=== PATIENT | female | born 1980 | race Caucasian/White ===

== ENCOUNTER → 2017-11-01 | Outpatient (CLI) | payer OTHER ==
[~2017-11-01] MED LIST: CLR10 PO; FLUT0.15; PRENTAB26 PO
[2017-11-01 11:14] LABS: BASO % 0.4 %; BASO ABS # 0.02 K/uL (0-0.2); EOS % 2.8 %; EOS ABS # 0.14 K/uL (0-0.5); HEMATOCRIT 39.7 % (37-47); HEMOGLOBIN 13.4 g/dL (12.0-16.0); IG# 0.02 K/uL (0.00-0.02); LYMPH % 27.6 %; LYMPH ABS # 1.36 K/uL (1.2-3.4); MEAN CORPUSCULAR HEMOGLOBIN 29.7 pg (25-34); MEAN CORPUSCULAR HGB CONC 33.8 g/dl (32-36); MEAN PLATELET VOLUME 10.1 fL (7.4-10.4); MONO % 9.8 %; MONO ABS # 0.48 K/uL (0.11-0.59); PLATELET COUNT 269 K/uL (130-400); RED CELL DISTRIBUTION WIDTH CV 13.1 % (11.5-14.5); RED CELL DISTRIBUTION WIDTH SD 42.2 fL (36.4-46.3); WHITE BLOOD COUNT 4.92 K/uL (4.8-10.8)
[2017-11-01 11:44] LABS: HEMOGLOBIN A1C 5.7 % (4.5-5.6)
[2017-11-01 11:49] LABS: ALBUMIN 3.9 gm/dl (3.4-5.0); ALKALINE PHOSPHATASE 70 U/L (45-117); ALT/SGPT 24 U/L (12-78); AST/SGOT 15 U/L (15-37); BLOOD UREA NITROGEN 6 mg/dl (7-18); CALCIUM 8.9 mg/dl (8.5-10.1); CARBON DIOXIDE 21 mmol/L (21-32); CREATININE 0.63 mg/dl (0.60-1.20); GLUCOSE 105 mg/dl (70-99); SODIUM 137 mmol/L (136-145); TOTAL PROTEIN 7.5 gm/dl (6.4-8.2)
[2017-11-04 12:19] LABS: ANA SCREEN TC 249X NEGATIVE (NEGATIVE)
== END | disposition home or self-care (01) ==
LOC: C.LAB1850 10:19
PROVIDERS: ATTEND Physician Assistant
DX: M25.50 Pain in unspecified joint (principal); W57.XXXA Bitten or stung by nonvenomous insect and other nonvenomous arthropods, initial encounter

== ENCOUNTER 2018-07-07 07:54 | Inpatient (IN) ==
[2018-07-07] MEDS ORDERED: LACTATED RINGER'S 1,000 ML IV PRN ×3 (08:02→12:30)
[2018-07-07] MEDS ORDERED: OXYTOCIN 30 UNITS/500 ML BAG IV PRN ×3 (08:02→17:14)
[2018-07-07] MEDS ORDERED: INSULIN REGULAR 250 UNITS in SODIUM CHLORIDE 0.9% 247.5 ML IV PRN (08:19)
--- NOTE | 2018-07-07 08:21 | Labor Progress Brief Note ---
Date of Service July 07, 2018 Subjective No OB c/o. Arrives for IOL. Assessment & Plan (1) Insulin controlled gestational diabetes mellitus (GDM) during , antepartum: IOL today. [place] favorable, Pit ordered per wishes of on-call MD today Dr. Toledo. Insulin management protocol started. GBS neg. Physical Exam Physical Exam: FHT Cat 1 Irreg ctx not painful per patient. Cvx 3/75/-2 Vertex palpable No LOF or VB evident. BG 77 at home this AM per patient. Had light breakfast with 16u insulin. Results & Data Vital Signs (Past 12 Hours) Vital Signs Pulse BP 07/07/18 08:07 90 131/90
--- NOTE | 2018-07-07 08:24 | History & Physical Report ---
Date of Service July 07, 2018 Assessment & Plan (1) Encounter for induction of labor: Ms. Gagnon is a pleasant 37yo who presents for IOL at 39.3 weeks. complicated by GDM on insulin and AMA. Since resolved pruritus of . -Pit, fluids, NPO, insulin protocol -Anticipate History of Present Illness Chief Complaint: Induction of labor Primary Care Provider: MATIAS Perez Ms. Gagnon is a 37yo presenting at 39.3 weeks for IOL. ARMANI of July 11, 2018 confirmed by LMP and 1st trimester US. course complicated by GDM on insulin, advanced maternal age and pruritus of . Had a prevous with undiagnosed Down's Syndrome. Has been receiving NSTs from 32 weeks. A+, Antibody NEGATIVE Rubella immune HBsAg NEGATIVE, HIV NEGATIVE Cell free DNA NEGATIVE Declined MSAFP and SMA testing. GBS- Allergies Allergy/AdvReac Type Severity Reaction Status Date / Time Cephalosporins Allergy Mild Gastrointestinal Verified 07/07/18 08:15 Upset milk Allergy Unknown protein Verified 06/02/18 20:07 allergy to milk Home Medications Home Medications Medication Instructions Recorded Confirmed Type PNV cmb#95-ferrous fumarate-FA 1 tab PO DAILY 06/02/18 07/07/18 History [] fluticasone propionate [Flonase 2 spray INTRANASAL DAILY PRN 06/02/18 07/07/18 History Allergy Relief] insulin NPH isoph U-100 human 40 units SUBCUT HS 06/02/18 07/07/18 History [Humulin N NPH Insulin KwikPen] insulin lispro [Humalog KwikPen 16 - 18 units SUBCUT TIDM 06/02/18 07/07/18 History Insulin] loratadine [Claritin] 10 mg PO DAILY PRN 06/02/18 07/07/18 History Patient History Medical History Gestational diabetes mellitus History of tooth extraction No known health problems Seasonal allergic rhinitis [place] teeth extracted No significant family history No significant medical problems No significant past medical history No significant past surgical history Family History Other No known health problems Social History Preferred Language: Bahamian Communication Ability: Effective Maintenance Of Way Foreman Required: No Beliefs That Will Affect Care: None marital status: Current Living Situation: Spouse Feels Safe at Home: Yes Safety Concerns: Feels Safe At This Time Smoking Status: Never smoker Hx Alcohol Use: No Hx Substance Use: No Review of Systems no problem reported (no blurry vision) no dyspnea no chest pain and no palpitations no nausea and no vomiting no pruritus no headache(s) Physical Exam Respiratory: normal respiratory effort, lungs clear to auscultation (lungs clear on front) Cardiovascular: Rate/Rhythm: regular rate and regular rhythm Genitourinary: Cervical exam per Dr. Stone: 3cm dilated, 75% effaced, -2 station Results & Data Laboratory Results Laboratory Results - last 24 hr 07/07/18 08:24 POC Glucose 91 Medications Administered Home Medications PNV cmb#95-ferrous fumarate-FA [] 1 tab PO DAILY 06/02/18 [History Confirmed 06/02/18] fluticasone propionate [Flonase Allergy Relief] 2 spray INTRANASAL DAILY PRN 06/02/18 [History Confirmed 06/02/18] insulin NPH isoph U-100 human [Humulin N NPH Insulin KwikPen] 45 units SUBCUT HS 06/02/18 [History Confirmed 06/02/18] insulin lispro [Humalog KwikPen Insulin] 15 - 18 units SUBCUT TIDM 06/02/18 [History Confirmed 06/02/18] loratadine [Claritin] 10 mg PO DAILY PRN 06/02/18 [History Confirmed 06/02/18] Active Medications Lactated Ringer's (Lr) 1,000 mls @ 999 mls/hr IV .Q1H1M PRN PRN Reason: Pre-Anesthesia Stop: 08/06/18 08:01 Lactated Ringer's (Lr) 1,000 mls @ 999 mls/hr IV .Q1H1M PRN PRN Reason: Tachysystole Stop: 07/09/18 08:06 Lactated Ringer's (Lr) 1,000 mls @ 125 mls/hr IV .Q8H DANDY Stop: 07/09/18 08:14 Last Admin: 07/07/18 08:33 Dose: 125 mls/hr Documented by: Oxytocin (Pitocin) 30 units in 500 mls @ 1 mls/hr IV .Q24H PRN; Protocol PRN Reason: Labor Induction/Augmentation Stop: 07/09/18 08:06 Oxytocin (Pitocin) 30 units in 500 mls @ 333.333 mls/hr IV .Q1H30M PRN; Protocol PRN Reason: Bleeding Control Stop: 08/06/18 08:01 Insulin Human Regular 250 (units/ Sodium Chloride) 250 mls @ 0 mls/hr IV Q24H PRN; Protocol PRN Reason: BSG 80mg/dL or above Stop: 08/06/18 08:18 Supervising Physician Co-Signing Physician Notes Resident Physician Supervision Note: I interviewed and examined the patient. Discussed with Dr. Tavares and agree with findings and plan as documented in the note. Any exceptions or clarifications are listed here: I will not use insulin protocol, will check bsgs q2hr or prn and go from there with goal to keep bsgs between 80-120. Pt aware. Once regular pattern, plan arom. Documented By: Alissa Toledo MD, FACOG
[2018-07-07] MEDS: LACTATED RINGER'S 1,000 ML IV SCH ×2 (08:33→13:15)
[2018-07-07 08:36] LABS: Hematocrit (blood only) 37.4 % (37-47); Hemoglobin 12.7 g/dL (12.0-16.0); Mean Platelet Volume 12.1 fL (7.4-10.4); Platelet Count 208 K/uL (130-400); RDW Coefficient of Variation 14.9 % (11.5-14.5); RDW Standard Deviation 46.6 fL (36.4-46.3); White Blood Count 8.49 K/uL (4.8-10.8)
[2018-07-07] MEDS ORDERED: GLUCAGON FOR INJ 1 MG VIAL IM PRN (09:00)
[2018-07-07] MEDS ORDERED: GLUCOSE 40% GEL 15 GM TUBE PO PRN (09:00)
[2018-07-07] MEDS ORDERED: CARBOHYDRATES FOR HYPOGLYCEMIA PO PRN (09:00)
[2018-07-07] MEDS ORDERED: GLUCOSE 10 TABS/TUBE PO PRN (09:00)
[2018-07-07] MEDS ORDERED: DEXTROSE 50% 50 ML SYRINGE IV PRN (09:00)
--- NOTE | 2018-07-07 10:12 | Obstetrical Progress Note ---
Date of Service July 07, 2018 Assessment & Plan (1) Insulin controlled gestational diabetes mellitus (GDM) during , antepartum: (2) Encounter for induction of labor: will see how arom augments pitocin induction labor pattern. fhts categ 1. recheck bsg by 1hr. or per protocol. Subjective pt feeling woozy, bsg 55. getting juice Physical Exam Constitutional: WD/WN, vitals as above Genitourinary: Manual OB Exam: + cervical dilation 3 cm, + cervical effacement 50%, + station -2 and + amniotic fluid (arom) clear OB Exam Monitor Tracing: + external FHT monitor used (115 mod variability, reactive), + external uterine monitor used (q3) and + category I pit at 3 Results & Data Vital Signs (Past 12 Hours) Vital Signs Temp Pulse Resp BP 07/07/18 08:18 98.4 F 18 07/07/18 08:07 90 131/90
[2018-07-07] MEDS ORDERED: ePHEDrine sulfate 50 MG/ML AMP ONE (11:45)
[2018-07-07] MEDS ORDERED: BUPIVACAINE 0.25% 30 ML VIAL ONE (11:45)
[2018-07-07] MEDS ORDERED: fentaNYL citrate 100 MCG/2 ML VIAL ONE (11:46)
[2018-07-07] MEDS ORDERED: fentaNYL 2MCG/ML ROPIV 1.25MG/ML 100 ML BAG EPI ONE (11:47)
--- NOTE | 2018-07-07 12:15 | Anesthesiology Consultation ---
Date of Service July 07, 2018 Assessment & Plan (1) Encounter for pre-operative examination: Chart Review Chart Review: Patient NOT seen in Pre Admission Testing and Acceptable Risk for Labor Epidural Consults Requested none ASA ASA3 Proposed Anesthesia Anesthesia Type: Labor Epidural and CSE Risk / Benefits Reviewed With: PT / POA / Parent / Guardian, Accepts Plan and Informed Consent Obtained NPO Date Last Intake of Fluids: 07/07/18 Time Last Intake of Fluids: 07:00 Date Last Intake of Solids: 07/07/18 Time Last Intake of Solids: 11:45 History Height/Weight Height: 5 ft 2 in Weight: 81.193 kg Allergies Allergy/AdvReac Type Severity Reaction Status Date / Time Cephalosporins Allergy Mild Gastrointestinal Verified 07/07/18 08:15 Upset milk Allergy Unknown protein Verified 06/02/18 20:07 allergy to milk Medications Home Medications Medication Instructions Recorded Confirmed Last Taken PNV cmb#95-ferrous fumarate-FA 1 tab PO DAILY 06/02/18 07/07/18 07/05/18 [] fluticasone propionate [Flonase 2 spray INTRANASAL DAILY PRN 06/02/18 07/07/18 07/06/18 21:00 Allergy Relief] insulin NPH isoph U-100 human 40 units SUBCUT HS 06/02/18 07/07/18 07/07/18 02:00 [Humulin N NPH Insulin KwikPen] 40 units insulin lispro [Humalog KwikPen 16 - 18 units SUBCUT TIDM 06/02/18 07/07/18 07/07/18 06:45 Insulin] 16 units loratadine [Claritin] 10 mg PO DAILY PRN 06/02/18 07/07/18 07/06/18 21:00 Active Medications Generic Name Dose Route Start Last Admin Trade Name Freq PRN Reason Stop Dose Admin Lactated Ringer's 1,000 mls @ 125 mls/hr 07/07/18 08:15 07/07/18 11:35 Lr IV 07/09/18 08:14 999 mls/hr .Q8H DANDY Infusion Oxytocin 30 units in 500 mls @ 3 mls/hr 07/07/18 08:07 07/07/18 10:57 Pitocin IV 07/09/18 08:06 0.42 units/hr .Q24H PRN 7 mls/hr Labor Induction/Augmentation Titration Protocol 0.18 UNITS/HR Past Medical History Medical History Gestational diabetes mellitus History of tooth extraction No known health problems Seasonal allergic rhinitis [place] teeth extracted No significant family history No significant medical problems No significant past medical history No significant past surgical history Past Family History Family History Other No known health problems Past Anesthesia History No Hx of Anesthesia Complications and No Family Hx of Anesthesia Complications History of PONV No Motion Sickness Screening History of Motion Sickness: No Social History Smoking Status: Never smoker Hx Alcohol Use: No Hx Substance Use: No Exercise / Class Metabolic Activity II 4-5 Yardwork/Stairs/Walk up [place] Review of Systems no chest pain or sob Physical Exam Vital Signs Last Vital Signs Temp 36.8 C 07/07/18 10:59 Pulse 82 07/07/18 12:14 Resp 18 07/07/18 10:59 BP 143/78 H 07/07/18 12:09 Pulse Ox 98 07/07/18 12:14 ENMT Mouth: no TMJ abnormality Thyromental Distance: > or= 3.5 Finger Breadths Mallampati Class: II Neck normal visual inspection Respiratory normal respiratory effort Auscultation: lungs clear to auscultation bilaterally Cardiovascular Rate/Rhythm: regular rate and regular rhythm Musculoskeletal Spine: normal cervical ROM Neurologic moves all extremities Psychiatric Orientation: alert and oriented x 3 Testing Laboratory Results 07/07/18 08:23 07/07/18 07/07/18 07/07/18 11:55 10:27 10:02 POC Glucose 54 L* 82 55 L* 07/07/18 08:24 POC Glucose 91
[2018-07-07] MEDS ORDERED: NALOXONE HCL 0.4 MG/1 ML VIAL/CARP IV PRN (12:30)
[2018-07-07] MEDS ORDERED: ePHEDrine sulfate 50 MG/ML AMP IV PRN (12:30)
[2018-07-07] MEDS ORDERED: DiphenhydrAMINE HCL 50 MG/ML VIAL IV PRN (12:30)
[2018-07-07] MEDS ORDERED: fentaNYL 2MCG/ML ROPIV 1.25MG/ML 100 ML BAG EPI PRN (12:30)
[2018-07-07] MEDS ORDERED: ONDANSETRON INJ 2 MG/ML 2 ML VIAL IV PRN (12:30)
[2018-07-07] MEDS ORDERED: NALBUPHINE HCL INJ 10 MG/ML AMP IV PRN (12:30)
[2018-07-07] MEDS ORDERED: NALOXONE HCL 1 MG in SODIUM CHLORIDE 0.9% 1000ML 1,000 ML IV PRN (12:30)
--- NOTE | 2018-07-07 13:00 | Obstetrical Progress Note ---
Date of Service July 07, 2018 Assessment & Plan (1) Encounter for induction of labor: (2) Insulin controlled gestational diabetes mellitus (GDM) during , antepartum: good cx change, categ 1, pitocin induction Subjective comfortable Physical Exam Genitourinary: Manual OB Exam: + cervical dilation 5 cm, + cervical effacement 90% and + station -1 OB Exam Monitor Tracing: + external FHT monitor used (125 mod variability reactive, categ 1), + external uterine monitor used (q2-3 pit at 7) and + category I Results & Data Vital Signs (Past 12 Hours) Vital Signs Temp Pulse Resp BP Pulse Ox Pulse Ox 07/07/18 12:54 95 H 97 07/07/18 12:49 90 97 07/07/18 12:44 81 123/67 98 07/07/18 12:42 83 121/71 07/07/18 12:41 98 07/07/18 12:40 84 124/75 07/07/18 12:39 95 H 98 07/07/18 12:38 88 122/74 07/07/18 12:36 82 125/74 07/07/18 12:34 101 H 129/72 97 07/07/18 12:32 83 128/67 07/07/18 12:31 87 132/75 07/07/18 12:30 98.6 F 07/07/18 12:29 79 98 07/07/18 12:28 87 135/74 07/07/18 12:26 81 127/73 07/07/18 12:24 88 144/77 H 99 07/07/18 12:23 88 151/81 H 07/07/18 12:21 83 157/65 H 07/07/18 12:19 87 144/84 H 98 07/07/18 12:16 88 144/87 H 07/07/18 12:14 82 98 07/07/18 12:09 87 143/78 H 97 07/07/18 12:00 98 07/07/18 11:08 81 129/80 07/07/18 10:59 98.2 F 18 07/07/18 10:00 18 07/07/18 08:18 98.4 F 18 07/07/18 08:07 90 131/90
--- NOTE | 2018-07-07 15:52 | Obstetrical Progress Note ---
Date of Service July 07, 2018 Assessment & Plan (1) Encounter for induction of labor: (2) Insulin controlled gestational diabetes mellitus (GDM) during , antepartum: begin 2nd stage. fhts categ 1. Subjective feelin some pressure Physical Exam Constitutional: WD/WN, vitals as above Genitourinary: Manual OB Exam: + cervical dilation 10 cm, + cervical effacement 100% and + station + 2 OB Exam Monitor Tracing: + external FHT monitor used (130 mod variability), + external uterine monitor used (q3) and + category I bsg 78 Results & Data Vital Signs (Past 12 Hours) Vital Signs Temp Pulse Resp BP Pulse Ox Pulse Ox 07/07/18 15:49 108 H 98 07/07/18 15:44 105 H 98 07/07/18 15:43 93 H 134/81 07/07/18 15:39 105 H 98 07/07/18 15:34 94 H 97 07/07/18 15:29 95 H 97 07/07/18 15:28 93 H 127/80 07/07/18 15:24 95 H 96 07/07/18 15:19 95 H 96 07/07/18 15:14 90 97 07/07/18 15:13 86 127/71 07/07/18 15:09 95 H 97 07/07/18 15:04 99 H 97 07/07/18 15:00 98.4 F 20 07/07/18 14:59 95 H 98 07/07/18 14:58 99 H 129/84 07/07/18 14:54 88 98 07/07/18 14:49 86 98 07/07/18 14:44 85 99 07/07/18 14:42 89 104/55 L 07/07/18 14:39 83 98 07/07/18 14:34 88 97 07/07/18 14:29 80 117/56 L 98 07/07/18 14:24 93 H 99 07/07/18 14:19 84 98 07/07/18 14:14 90 98 07/07/18 14:12 75 99/56 L 07/07/18 14:10 98.8 F 83 18 106/68 07/07/18 14:09 91 H 98 07/07/18 14:04 87 98 07/07/18 13:59 89 98 07/07/18 13:54 92 H 96 07/07/18 13:49 94 H 98 07/07/18 13:44 97 H 98 07/07/18 13:43 100 H 114/76 07/07/18 13:39 104 H 98 07/07/18 13:34 98 H 98 07/07/18 13:29 94 H 98 07/07/18 13:27 97 H 112/73 07/07/18 13:25 93 H 118/76 07/07/18 13:24 101 H 97 07/07/18 13:23 106 H 117/69 07/07/18 13:21 104 H 118/75 07/07/18 13:19 95 H 109/65 97 07/07/18 13:17 94 H 99/68 L 07/07/18 13:15 85 95/65 L 07/07/18 13:14 89 96 07/07/18 13:11 88 86/57 L 07/07/18 13:09 90 97 07/07/18 13:08 87 88/55 L 07/07/18 13:04 78 97 07/07/18 13:02 86 86/50 L 07/07/18 13:01 91 H 91 07/07/18 12:59 88 98 07/07/18 12:54 95 H 97 07/07/18 12:49 90 97 07/07/18 12:44 81 123/67 98 07/07/18 12:42 83 121/71 07/07/18 12:41 98 07/07/18 12:40 84 124/75 07/07/18 12:39 95 H 98 07/07/18 12:38 88 122/74 07/07/18 12:36 82 125/74 07/07/18 12:34 101 H 129/72 97 07/07/18 12:32 83 128/67 07/07/18 12:31 87 132/75 07/07/18 12:30 98.6 F 18 07/07/18 12:29 79 98 07/07/18 12:28 87 135/74 07/07/18 12:26 81 127/73 07/07/18 12:24 88 144/77 H 99 07/07/18 12:23 88 151/81 H 07/07/18 12:21 83 157/65 H 07/07/18 12:19 87 144/84 H 98 07/07/18 12:16 88 144/87 H 07/07/18 12:14 82 98 07/07/18 12:09 87 143/78 H 97 07/07/18 12:00 98 07/07/18 11:08 81 129/80 07/07/18 10:59 98.2 F 18 07/07/18 10:00 18 07/07/18 08:18 98.4 F 18 07/07/18 08:07 90 131/90
[2018-07-07] MEDS ORDERED: OXYCODONE/ACETAMINOPHEN 5mg/325mg TAB PO PRN (17:14)
[2018-07-07] MEDS ORDERED: SUPERCREAM 0.870% 15 GM JAR EXT PRN (17:14)
[2018-07-07] MEDS ORDERED: DIPHTHERIA/TETANUS/PERTUSSIS 0.5 ML SYR/VIAL IM ONE (17:14)
[2018-07-07] MEDS ORDERED: BENZOCAINE 20% AER SPR 82.5 GM CAN EXT PRN (17:14)
[2018-07-07] MEDS ORDERED: HYDROCORTISONE ACETATE 25 MG SUPP PR PRN (17:14)
[2018-07-07] MEDS ORDERED: ACETAMINOPHEN 325 MG TAB PO PRN (17:14)
--- NOTE | 2018-07-07 17:24 | Delivery Summary ---
DATE OF OPERATION: 07/07/2018 DELIVERY: The patient dilated to complete and pushed to deliver a viable male , Apgars 8 and 9 via over intact perineum. Mouth and nose bulb suctioned at the perineum. The shoulders and body delivered with ease. The infant was vigorous and crying at . Cord clamped at 30 seconds of life and to maternal abdomen where the cord was then doubly clamped and cut. Placenta delivered spontaneously and intact, 3-vessel cord. Hemostasis achieved with dilute Pitocin and uterine massage. Laceration was repaired which included a vaginal laceration and bilateral labial lacerations. This was done with 3-0 and 4-0 Vicryl after additional 1% local lidocaine anesthesia. Estimated blood loss 300 cc. Mother and baby stable in recovery. I attest to the content of the Intraoperative Record and any orders documented therein. Any exceptions are noted below. MTDD
[2018-07-07] MEDS ORDERED: OXYTOCIN 20 UNITS in LACTATED RINGER'S 1,000 ML IV SCH (17:30)
--- NOTE | 2018-07-07 17:42 | Anesthesia Procedure Note ---
Date of Service July 07, 2018 Anesthesia Post Epidural Note Vital Signs Vital Signs: Temp Pulse Resp BP Pulse Ox 37.0 C 107 H 18 125/73 97 07/07/18 17:12 07/07/18 17:27 07/07/18 17:27 07/07/18 17:27 07/07/18 17:19 Pain Intensity Bilateral Lower Abdomen: Pain Intensity: 0 Notes Mental Status: alert / awake / arousable and participated in evaluation Nausea / Vomiting: adequately controlled Pain: adequately controlled Airway Patency, RR, SpO2: stable & adequate BP & HR: stable & adequate Hydration State: stable & adequate Neuraxial Anesthesia: was administered and sensory block is resolving Anesthetic Complications: no major complications apparent and Pt Satisfied with anesthetic care Epidural: Removed without complications and With tip intact
[2018-07-07] MEDS: DOCUSATE SODIUM 100 MG CAP PO SCH (19:55)
[2018-07-07] MEDS: IBUPROFEN 600 MG TAB PO PRN (19:56)
--- OUTSIDE RECORDS SUMMARY | 2018-07-07 22:52 | External Medical Summary | Continuity of Care Document ---
:1980 Author Name Concha Santos, Provider Address Unavailable Unavailable , Care Team Providers Name Role Phone Alissa Toledo M.D. Unavailable [email or web address] Marty Post M.D. Unavailable [email or web address] Mary Kate [email or web address] [email or web address]. [facility] Kalin Edward Unavailable Unavailable Unavailable Unavailable Unavailable Problems Pruritus of in third trimester (646.83) (O99.713) LGA (large for gestational age) fetus Insulin controlled gestational diabetes mellitus during (648.80) (O24.414) Supervision of elderly multigravida, ant epartum, third trimester (V23.82) (O09.523) Moderate nausea (787.02) (R11.0) History of allergy (V15.09) (Z88.9) Arthralgia of multiple sites (719.49) (M25.50) Allergies and Adverse Reactions Ceftin TABS (Allergy) Reaction: Rash Cephalosporins (Allergy) Reaction: Rash Milk-related Compounds (Allergy) Medications Metoclopramide HCl - 10 MG Oral Tablet; take 1 tablet 30 minutes before each meal Danielle Vail Start: 05-Jun-2018 Quantity: 30 Refills: 3 Flonase 50 MCG/ACT SUSP Refills: 0 OneTouch Verio In Vitro Strip; Check 4 to 6 times a day Sandra amos M.D. Bonilla SInes Start: 16-Jan-2018 Quantity: 3 50 Strip Box Refills: 5 HumuLIN N KwikPen 100 UNIT/ML Subcutaneo us Suspension Pen-injector; Inject 65 units at bed time; titrate as needed to target up to 90 units a day Danielle Post Bonilla SInes Start: 12-Mar-2018 Quantity: 2 5 x 3 ML Pen Refills: 3 TABS Refills: 0 Keto-Diastix In Vitro Strip; USE DIRECTED. Danielle Post Start: 16-Jan-2018 Quantity: 1 100 Strip Box Refills: 3 OneTouch Delica Lancets Fine; Check 4x a day. Danielle Post Start: 16-Jan-2018 Quantity: 1 100 Unit Box Refills: 5 BD Pen Needle Janice U/F 32G X 4 MM; Use with Humulin N pen at bed time Danielle Post Start: 04-Feb-2018 Quantity: 40 Refills: 5 Claritin 10 MG Oral Tablet Refills: 0 Promethazine HCl TABS Refills: 0 Zantac TABS Refills: 0 HumaLOG KwikPen 100 UNIT/ML Subcutaneous Solution Pen-injector; Inject up to a TDD of 60-70 units in a day Danielle Post Start: 25-Feb-2018 Quantity: 2 5 x 3 ML Pen Refills: 3 Procedures History of Oral Surgery Tooth Extraction Status: Completed Immunizations Tdap (Adacel) On: 12-Apr-2015 16:39 Lot #: [id number], SANOFI PASTEUR Fluzone Quadrivalent 0.5 ML Intramuscular Suspension On: Mar Fluzone Quadrivalent 0.5 ML Intramuscular Suspension On: Nov-2017 12:48 Lot #: [id number], SANOFI PASTEUR Tdap (Adacel) On: 23-Apr-2018 10:46 Lot #: [id number], SANOFI PASTEUR Family History Mother Family history of Breast Cancer (V16.3) Status: Active Family history of malignant neoplasm of breast (V16.3) (Z80. 3) Status: Active Grandmother Family history of Breast Cancer (V16.3) Status: Active Unknown Family Member Family history of Reported Family History Of Status: Active Comments: Family History Heart Disease Family history of Pure Hypercholesterolemia Status: Active Comments: Family History Family history of Hypothyroidism Status: Active Comment s: Family History natural daughter Family history of Down syndrome (V19.5) (Z82.79) Status: Act braulio Plan of Treatment Planned Observations Planned Goals not documented Results Non-stress test Laboratory: In House (Pending) 10-Jun-2018 10:12 Non-Stress Test Reactive Non-stress test Laboratory: In House (Pending) 17-Jun-2018 10:28 Non-Stress Test Reactive Liver Panel Laboratory: [facility] (Albumin,Tot Prot,Alk Laboratory [address] [address] Dir,ALT/SGPT,AST/SGOT tel: ,Bili-Tot) 17-Jun-2018 10:55 Bilirubin, Total 0.6 mg/dl Range: 0.2-1 mg/dl Bilirubin, Direct 0.1 mg/dl Range: 0-0. 2 mg/dl AST/SGOT 38 U/L (above high Range: 15-3 7 U/L threshold) ALT/SGPT 93 U/L (above high Range: 12-7 8 U/L threshold) TOTAL PROTEIN 6.9 {gm/dl} Range: 6.4-8. 2 gm/dl ALBUMIN 2.6 {gm/dl} (below Range: 3.4-5 .0 gm/dl low threshold) ALKALINE PHOSPHATASE 283 Range: 45-117 U/L U/L (above high threshold) Group B Strep/SEPULVEDA 17-Jun-2018 15:21 GRP B BETA STREP CULTURE - SEPULVEDA ORDERED PROCEDURE : GRP B Beta Strep Culture -SEPULVEDA; Speciment : Vaginal/Rectal Source of Specimen: Vaginal/Rectal Group B Strep Culture : No Group B Strep isolated Non-stress test Laboratory: In House (Pending) 20-Jun-2018 9:34 Non-Stress Test Reactive Liver Panel Laboratory: [facility] (Albumin,Tot Prot,Alk Laboratory [address] [facility] [address] Dir,ALT/SGPT,AST/SGOT tel: ,Bili-Tot) 20-Jun-2018 8:35 Bilirubin, Total 0.5 mg/dl Range: 0.2-1 mg/dl Bilirubin, Direct 0.1 mg/dl Range: 0-0. 2 mg/dl AST/SGOT 25 U/L Range: 15-37 U/L ALT/SGPT 61 U/L Range: 12-78 U/L TOTAL PROTEIN 6.5 {gm/dl} Range: 6.4-8. 2 gm/dl ALBUMIN 2.5 {gm/dl} (below Range: 3.4-5 .0 gm/dl low threshold) ALKALINE PHOSPHATASE 269 Range: 45-117 U/L U/L (above high threshold) Bile Acids Laboratory: [employer] Comments: EDUIN Olvera Hyper9, Quantified Skin [id number] ACCESSI ON NUMBER: [id number] 17-Jun-2018 10:55 TOTAL BILE ACIDS 1.9 umol/L Range: < OR = 6.8 umol/L Comments: This test was developed and its analytical performancecharacteristics have been determined by [facility]. It has not beencleared or approved by FDA. This assa y has been validated pursuant to the CLIA regulations and is used for clinicalpurposes.THIS TEST WAS PERFORMED AT:[employer] [id number] [place], [place] [address]WHWHUNTER SANCHES MD, PHD CHOLIC ACID 0.9 umol/L Range: < OR = 1. 8 umol/L DEOXYCHOLIC ACID <0.5 Range: < OR = 2.4 umol/L umol/L CHENODEOXYCHOLIC ACID 1.1 Range: < OR = 3.1 umol/L umol/L Non-stress test Laboratory: In House (Pending) 24-Jun-2018 10:29 Non-Stress Test Reactive Non-stress test Laboratory: In House (Pending) 27-Jun-2018 12:22 Non-Stress Test Reactive Non-stress test Laboratory: In House (Pending) 01-Jul-2018 10:13 Non-Stress Test Reactive Liver Panel Laboratory: [facility] (Albumin,Tot Prot,Alk Laboratory [address] [facility] [address] Dir,ALT/SGPT,AST/SGOT tel: ,Bili-Tot) 01-Jul-2018 10:09 Bilirubin, Total 0.5 mg/dl Range: 0.2-1 mg/dl Bilirubin, Direct < 0.1 Range: 0-0.2 mg /dl mg/dl AST/SGOT 19 U/L Range: 15-37 U/L ALT/SGPT 21 U/L Range: 12-78 U/L TOTAL PROTEIN 6.6 {gm/dl} Range: 6.4-8. 2 gm/dl ALBUMIN 2.6 {gm/dl} (below Range: 3.4-5 .0 gm/dl low threshold) ALKALINE PHOSPHATASE 258 Range: 45-117 U/L U/L (above high threshold) Non-stress test Laboratory: In House (Pending) 04-Jul-2018 11:30 Non-Stress Test Reactive Vital Signs 04-Jul-2018 11:24 Systolic 112 mm[Hg] Diastolic 70 mm[Hg] Height 62 in BMI Calculated 32.96 kg/m2 Weight 180.2 lb BSA Calculated 1.83 m2 01-Jul-2018 9:04 Systolic 120 mm[Hg] Diastolic 76 mm[Hg] Height 62 in BMI Calculated 32.89 kg/m2 Weight 179.8 lb BSA Calculated 1.83 m2 27-Jun-2018 11:58 Systolic 112 mm[Hg] Diastolic 72 mm[Hg] Height 62 in BMI Calculated 32.85 kg/m2 Weight 179.6 lb BSA Calculated 1.83 m2 24-Jun-2018 9:29 Systolic 110 mm[Hg] Diastolic 68 mm[Hg] Height 62 in BMI Calculated 32.89 kg/m2 Weight 179.8 lb BSA Calculated 1.83 m2 20-Jun-2018 9:19 Systolic 100 mm[Hg] Diastolic 60 mm[Hg] Height 62 in BMI Calculated 32.42 kg/m2 Weight 177.25 lb BSA Calculated 1.82 m2 17-Jun-2018 9:35 Systolic 116 mm[Hg] Diastolic 78 mm[Hg] Height 62 in BMI Calculated 31.94 kg/m2 Weight 174.6 lb BSA Calculated 1.8 m2 10-Jun-2018 9:44 Systolic 112 mm[Hg] Diastolic 76 mm[Hg] Height 62 in BMI Calculated 32.7 kg/m2 Weight 178.8 lb BSA Calculated 1.82 m2 Encounters Appointment; Alissa Toledo M.D. 04-Jul-2018 11:40 Encounter Diagnosis: Problem not documented Appointment; OB SC1, Nonstress Test 04-Jul-2018 10:50 Encounter Diagnosis: Problem not documented Appointment; Carri Stone M.D. 01-Jul-2018 9:30 Encounter Diagnosis: Problem not documented Appointment; OB SC1, Nonstress Test 01-Jul-2018 9:00 Encounter Diagnosis: Problem not documented Appointment; OB SC1, Nonstress Test 27-Jun-2018 11:30 Encounter Diagnosis: Problem not documented Appointment; Carmen Vail M.D. 24-Jun-2018 9:30 Encounter Diagnosis: Problem not documented Appointment; OB SC1, Nonstress Test 24-Jun-2018 9:00 Encounter Diagnosis: Problem not documented Appointment; OB SC1, Nonstress Test 20-Jun-2018 8:45 Encounter Diagnosis: Problem not documented Appointment; Yo Mora M.D. 17-Jun-2018 10:30 Encounter Diagnosis: Problem not documented Appointment; OB SC1, Nonstress Test 17-Jun-2018 10:00 Encounter Diagnosis: Problem not documented Appointment; OBGYN SC1, Ultrasound 17-Jun-2018 9:30 Encounter Diagnosis: Problem not documented Appointment; OB SC1, Nonstress Test 10-Jun-2018 9:30 Encounter Diagnosis: Problem not documented Appointment; Carmen Vail M.D. 05-Jun-2018 10:20 Encounter Diagnosis: Problem not documented Appointment; OB SC1, Nonstress Test 05-Jun-2018 9:30 Encounter Diagnosis: Problem not documented Appointment; Alissa Toledo M.D. 21-May-2018 10:30 Encounter Diagnosis: Problem not documented Appointment; OB SC1, Nonstress Test 21-May-2018 10:00 Encounter Diagnosis: Problem not documented Appointment; OBGYN SC2, Ultrasound 21-May-2018 9:30 Encounter Diagnosis: Problem not documented Appointment; Carri Stone M.D. 06-May-2018 13:30 Encounter Diagnosis: Problem not documented Appointment; Adonay Casillas M.D. 23-Apr-2018 10:20 Encounter Diagnosis: Problem not documented Appointment; OBGYMay PRIETO2, Ultrasound 23-Apr-2018 9:30 Encounter Diagnosis: Problem not documented Appointment; Alissa Toledo M.D. 26-Mar-2018 10:20 Encounter Diagnosis: Problem not documented Appointment; OBGYN SC2, Ultrasound 26-Mar-2018 9:30 Encounter Diagnosis: Problem not documented Appointment; Carmen Vail M.D. 24-Feb-2018 11:20 Encounter Diagnosis: Problem not documented Appointment; OBGYN IDA2, Ultrasound 24-Feb-2018 10:15 Encounter Diagnosis: Problem not documented Appointment; Keli Serna M.D. 27-Jan-2018 8:30 Encounter Diagnosis: Problem not documented Appointment; Trinity Dow R.D. 16-Jan-2018 9:00 Encounter Diagnosis: Problem not documented Appointment; Alissa Toledo M.D. 30-Dec-2017 11:50 Encounter Diagnosis: Problem not documented Appointment; OB SC1, Procedure Rm 25-Nov-2017 12:00 Encounter Diagnosis: Problem not documented Appointment; Yo Mora M.D. 25-Nov-2017 12:00 Encounter Diagnosis: Problem not documented Appointment; OB SC1, Nursing Station 15-Nov-2017 8:45 Encounter Diagnosis: Problem not documented Appointment; Loni Hooks PA-C 01-Nov-2017 9:30 Encounter Diagnosis: Problem not documented Appointment; Lucretia Edward CRNP 18-Apr-2017 15:00 Encounter Diagnosis: Problem not documented Appointment; Nursing [facility], [facility] 18-Apr-2017 14:45 Encounter Diagnosis: Problem not documented
[2018-07-08] MEDS: IBUPROFEN 600 MG TAB PO PRN ×4 (03:02→20:18)
--- NOTE | 2018-07-08 07:02 | Obstetrical Progress Note ---
Date of Service <Lizzy Tavares MD - Last Filed: 07/08/18 07:19> July 08, 2018 Assessment & Plan <Lizzy Tavares MD - Last Filed: 07/08/18 07:19> (1) care following vaginal delivery: 37yo with vaginal delivery at 39.3 weeks. GDM on insulin during the . PPD #1 -Routine care -Glucose checks discontinued; in office f/u upon discharge -Ambulation encouraged -Pain control Subjective <Lizzy Tavares MD - Last Filed: 07/08/18 07:19> Ambulation: limited ambulation (to the bathroom.) Voiding: no voiding problems (mild dysuria) Passing Gas:: Yes Diet Tolerance:: regular diet Lochia:: Moderate Feeding Type:: breast feeding Current Pain Level(1-10): 2 Eyes: no problem reported (no blurry vision) Respiratory: no dyspnea Cardiovascular: no chest pain, no palpitations, no lightheadedness and no calf pain Gastrointestinal: no nausea and no vomiting Genitourinary (female): + dysuria (mild) Neurologic: no headache(s) Physical Exam <Lizzy Tavares MD - Last Filed: 07/08/18 07:19> Vital Signs (Past 24 Hours) Last Vital Signs Temp 36.6 C 07/08/18 03:15 Pulse 84 07/08/18 03:15 Resp 18 07/08/18 03:15 BP 128/82 07/08/18 03:15 Pulse Ox 97 07/07/18 20:00 Respiratory normal respiratory effort, lungs clear to auscultation Cardiovascular Rate/Rhythm: regular rate and regular rhythm Extremities: no calf tenderness and no pedal edema Genitourinary OB Exam Abdomen: + fundal height Fundus: + firm and + relation to umbilicus (at umbilicus) Results & Data <Lizzy Tavares MD - Last Filed: 07/08/18 07:19> Laboratory Results Laboratory Results - last 24 hr 07/07/18 07/07/18 07/07/18 08:23 08:24 10:02 WBC 8.49 RBC 4.40 Hgb 12.7 Hct 37.4 MCV 85.0 MCH 28.9 MCHC 34.0 RDW Std Deviation 46.6 H RDW Coeff of Analia 14.9 H Plt Count 208 MPV 12.1 H POC Glucose 91 55 L* 07/07/18 07/07/18 07/07/18 10:27 11:55 12:17 WBC RBC Hgb Hct MCV MCH MCHC RDW Std Deviation RDW Coeff of Analia Plt Count MPV POC Glucose 82 54 L* 81 07/07/18 07/07/18 07/07/18 13:18 14:28 15:47 WBC RBC Hgb Hct MCV MCH MCHC RDW Std Deviation RDW Coeff of Analia Plt Count MPV POC Glucose 93 78 78 Medications Administered Home Medications PNV [id number] fumarate-FA [] 1 tab PO DAILY 06/02/18 [History Confirmed 07/07/18] fluticasone propionate [Flonase Allergy Relief] 2 spray INTRANASAL DAILY PRN 06/02/18 [History Confirmed 07/07/18] insulin NPH isoph U-100 human [Humulin N NPH Insulin KwikPen] 40 units SUBCUT HS 06/02/18 [History Confirmed 07/07/18] insulin lispro [Humalog KwikPen Insulin] 16 - 18 units SUBCUT TIDM 06/02/18 [History Confirmed 07/07/18] loratadine [Claritin] 10 mg PO DAILY PRN 06/02/18 [History Confirmed 07/07/18] Active Medications Acetaminophen (Tylenol) 650 mg PO Q6H PRN PRN Reason: Pain/RAND/Fever Stop: 08/06/18 17:13 Benzocaine (Dermoplast Pain Relieving [place]) 1 appln EXT PRN PRN PRN Reason: Perineal Discomfort Stop: 08/06/18 17:13 Cocaine HCl (Supercream 0.870%) 1 gm EXT BID PRN PRN Reason: Hemorrhoidal Inflammation Stop: 07/21/18 17:13 Diphenhydramine HCl (Benadryl) 25 mg IV Q6H PRN PRN Reason: Itching Stop: 07/08/18 12:29 Docusate Sodium (Colace) 100 mg PO BID DANDY Stop: 08/06/18 20:59 Last Admin: 07/07/18 19:55 Dose: 100 mg Documented by: Ephedrine Sulfate (Ephedrine Sulfate) 10 mg IV Q5M PRN PRN Reason: Hypotension Stop: 07/08/18 12:29 Hydrocortisone (Anusol Hc) 25 mg OH BID PRN PRN Reason: Hemorrhoidal Inflammation Stop: 08/06/18 17:13 Insulin Human Regular 250 (units/ Sodium Chloride) 250 mls @ 0 mls/hr IV Q24H PRN; Protocol PRN Reason: BSG 80mg/dL or above Stop: 08/06/18 08:18 Naloxone HCl 1 mg/ Sodium (Chloride) 1,002.5 mls @ 50 mls/hr IV .Q20H3M PRN PRN Reason: itching or nausea Stop: 07/08/18 12:29 Oxytocin 20 units/ Lactated (Ringer's) 1,002 mls @ 125 mls/hr IV .Q8H1M DANDY Stop: 08/06/18 17:29 Last Infusion: 07/08/18 03:05 Dose: Infused Documented by: Ibuprofen (Motrin) 600 mg PO Q4H PRN PRN Reason: Pain/RAND/Cramping/Fever Stop: 08/06/18 17:13 Last Admin: 07/08/18 03:02 Dose: 600 mg Documented by: Nalbuphine HCl (Nubain) 5 mg IV Q10M PRN PRN Reason: itching or nausea Stop: 07/08/18 12:29 Naloxone HCl (Narcan) 0.1 mg IV UD PRN PRN Reason: respiratory depression Stop: 07/08/18 12:29 Ondansetron HCl (Zofran) 4 mg IV Q6H PRN PRN Reason: Nausea And Vomiting Stop: 07/08/18 12:29 Oxycodone/Acetaminophen (Percocet 5mg/325mg) 1 tab PO Q4H PRN PRN Reason: Pain not relieved by... Stop: 07/21/18 17:13 Prenat Multivit/Iatan/Iron/Folic Ac ( Vitamin) 1 tab PO QAM DANDY Stop: 08/07/18 08:59 Ropivacaine (Epidural (L&D)) 100 ml EPI PRN PRN; Protocol PRN Reason: Pain R/T Labor Stop: 07/08/18 12:29 <Alissa Toledo MD, FACOG - Last Filed: 07/08/18 08:47> Co-Signing Physician Notes Resident Physician Supervision Note: I was present with Dr. Locke during the history and exam. I discussed the case with the resident and agree with the findings and plan as documented in the note. Any exceptions or clarifications are listed here: Doing well, feels well. baby. routine pp care. Documented By: Alissa Toledo MD, FACOG
[2018-07-08 07:30] LABS: Hematocrit (blood only) 31.1 % (37-47); Hemoglobin 10.4 g/dL (12.0-16.0); Mean Corpuscular Hgb Conc 33.4 g/dL (32-36); Mean Corpuscular Volume 85.4 fL (80-100); Mean Platelet Volume 11.1 fL (7.4-10.4); Platelet Count 184 K/uL (130-400); RDW Coefficient of Variation 15.3 % (11.5-14.5); RDW Standard Deviation 47.3 fL (36.4-46.3); Red Blood Count 3.64 M/uL (4.2-5.4)
[2018-07-08] MEDS: PRENATAL VITAMIN 1 TAB PO SCH (08:34)
[2018-07-08] MEDS: DOCUSATE SODIUM 100 MG CAP PO SCH ×2 (08:34→20:18)
[2018-07-09 06:17] LABS: Hematocrit (blood only) 29.7 % (37-47); Hemoglobin 9.8 g/dL (12.0-16.0)
[2018-07-09] MEDS: IBUPROFEN 600 MG TAB PO PRN (07:15)
--- NOTE | 2018-07-09 08:25 | Obstetrical Progress Note ---
Date of Service <Lizzy Tavares MD - Last Filed: 07/09/18 08:29> July 09, 2018 Assessment & Plan <Lizzy Tavares MD - Last Filed: 07/09/18 08:29> (1) care following vaginal delivery: 37yo with at 39.3 weeks. PPD #2 -Pt doing well -Discharge today, instructions reviewed Subjective <Lizzy Tavares MD - Last Filed: 07/09/18 08:29> Ambulation: ambulating normally Voiding: no voiding problems Diet Tolerance:: regular diet Lochia:: Moderate Feeding Type:: breast feeding Respiratory: no dyspnea Cardiovascular: no palpitations, no lightheadedness, no edema and no calf pain Gastrointestinal: + nausea (mild this AM); no vomiting Genitourinary (female): no dysuria Neurologic: no headache(s) Physical Exam <Lizzy Tavares MD - Last Filed: 07/09/18 08:29> Vital Signs (Past 24 Hours) Last Vital Signs Temp 36.7 C 07/08/18 22:55 Pulse 82 07/08/18 22:55 Resp 18 07/08/18 22:55 BP 118/82 07/08/18 22:55 Pulse Ox 97 07/08/18 20:05 Respiratory normal respiratory effort, lungs clear to auscultation Cardiovascular Rate/Rhythm: regular rate and regular rhythm Extremities: no calf tenderness Genitourinary OB Exam Abdomen: + fundal height Fundus: + firm and + relation to umbilicus (at umbilicus) Results & Data <Lizzy Tavares MD - Last Filed: 07/09/18 08:29> Laboratory Results Laboratory Results - last 24 hr 07/09/18 05:41 Hgb 9.8 L Hct 29.7 L <Adonay Casillas MD - Last Filed: 07/09/18 08:37> Co-Signing Physician Notes Patient seen and agree with findings and plan
[2018-07-09] MEDS: DOCUSATE SODIUM 100 MG CAP PO SCH (08:34)
[2018-07-09] MEDS: PRENATAL VITAMIN 1 TAB PO SCH (08:34)
== END 2018-07-09 11:37 | disposition home or self-care (01) | DRG 807 ==
LOC: 4S1 07:54 → 4S2 19:35